=== PATIENT | male | born 1960 | race Caucasian/White ===

== ENCOUNTER → 2016-10-25 | Outpatient (REF) ==
[~2016-10-25] MED LIST: ASPIRIN 32325 MG/TAB PO; LOPRESSOR 225 MG/TAB PO; NITROSTAT0.4 MG/TAB SL; VENTOLIN0.09 MG IH
== END ==
LOC: ZLAB.WCH 13:27
DX: Z01.89 Encounter for other specified special examinations (principal)

== ENCOUNTER → 2017-01-02 | Outpatient (CLI) | payer OTHER | LOC: COL.PUL 09:44 | DX: Z02.1 Encounter for pre-employment examination (principal); J44.9 Chronic obstructive pulmonary disease, unspecified ==

== ENCOUNTER → 2017-07-29 | Outpatient (REF) ==
[2017-07-29 21:05] LABS: PSA-TOTAL < 0.10 ng/mL (0-4)
== END ==
LOC: ZLAB.WCH 19:31
PROVIDERS: Internal Medicine
DX: Z12.5 Encounter for screening for malignant neoplasm of prostate (principal)
CPT/HCPCS: G0103

== ENCOUNTER → 2018-07-20 | Outpatient (REF) ==
[2018-07-20 16:41] LABS: THYROID STIMULATING HORMONE 2.13 uIU/mL (0.465-4.680)
[2018-07-20 16:49] LABS: PSA-TOTAL 0.26 ng/mL (0-4)
== END ==
LOC: ZLAB.WCH 15:50
PROVIDERS: Internal Medicine
DX: Z01.89 Encounter for other specified special examinations (principal)
CPT/HCPCS: G0103

== ENCOUNTER → 2019-01-19 | Outpatient (REF) | LOC: ZLAB.WCH 14:16 | DX: Z01.89 Encounter for other specified special examinations (principal) ==